=== PATIENT | male | born 1960 | race Two or more races ===

== ENCOUNTER 2023-11-02 13:19 | Inpatient (IN) | payer MEDICARE, OTHER ==
[~2023-11-02] VITALS: Ht 180.3 cm; Wt 79.4 kg
[2023-11-02] MEDS ORDERED: HYDR-3980 PO (14:34)
[2023-11-02] MEDS ORDERED: GABA300C PO (14:34)
[2023-11-02] MEDS ORDERED: TAMS-12 PO (14:34)
[2023-11-02] MEDS ORDERED: CARI350T27 PO (14:34)
[2023-11-02] MEDS ORDERED: MEMA5TAB42 PO (14:34)
[2023-11-02] MEDS ORDERED: ATOR10TA PO (14:45)
[2023-11-02] MEDS ORDERED: CANA1TAB4 PO (14:45)
[2023-11-02 14:59] LABS: BASOPHILS % (AUTO) 0.3 % (0.0-2.0); EOSINOPHILS # (AUTO) 0.1 K/uL (0.0-0.7); EOSINOPHILS % (AUTO) 1.9 % (0.0-6.0); HEMATOCRIT 43 % (39-51); LYMPHOCYTES # (AUTO) 1.7 K/uL (0.8-4.8); LYMPHOCYTES % (AUTO) 29.6 % (20.0-44.0); MEAN CORPUSCULAR HEMOGLOBIN 31 PG (26.0-33.0); MEAN CORPUSCULAR HGB CONC 33 g/dl (31.0-36.0); MEAN CORPUSCULAR VOLUME 94 fL (80-96); MONOCYTES # (AUTO) 0.4 K/uL (0.1-1.30); MONOCYTES % (AUTO) 7.2 % (2.0-12.0); NEUTROPHILS # (AUTO) 3.6 K/uL (1.8-8.9); PLATELET COUNT (AUTO) 256 K/uL (150-450); RED BLOOD CELL COUNT(AUTO) 4.53 MIL/uL (4.5-6.0); RED CELL DISTRIBUTION WIDTH 13.3 % (11.5-15.0); WHITE BLOOD COUNT (AUTO) 5.8 K/uL (4.3-11.0)
[2023-11-02 15:17] LABS: INR 0.92 (0.91-1.10); PARTIAL THROMBOPLASTIN TIME 28.2 SEC (24.3-34.3); PROTHROMBIN TIME 9.8 SECS (9.2-11.1)
[2023-11-02] MEDS ORDERED: ACETAMINOPHEN 325 MG TABLET PO PRN (15:30)
[2023-11-02] MEDS ORDERED: DEXTROSE 50%-WATER 50 ML DISP.SYRIN IV PRN (15:30)
[2023-11-02] MEDS ORDERED: MAGNESIUM HYDROXIDE 30 ML UDC PO PRN (15:30)
[2023-11-02] MEDS ORDERED: Z GUARD REMEDY 4 OZ OINT TP PRN (15:30)
[2023-11-02 15:40] LABS: ALBUMIN 3.8 g/dL (3.4-5.0); BILIRUBIN,TOTAL 0.2 mg/dL (0.2-1.0); CALCIUM, SERUM 9.1 mg/dL (8.5-10.1); CREATININE 1.1 mg/dL (0.6-1.3); POTASSIUM 4.6 mmol/L (3.5-5.1); TOTAL PROTEIN, SERUM 7.6 g/dL (6.4-8.2)
[2023-11-02] MEDS: BLOOD SUGAR DIAGNOSTIC 1 EACH STRIP IN SCH ×2 (17:06→23:13)
[2023-11-02] MEDS: HYDROMORPHONE 1 MG/1 ML DISP.SYRIN IV PRN ×2 (17:32→21:42)
[2023-11-02 18:55] VITALS: BP 98/54; TEMP 99
[2023-11-02] MEDS: INSULIN REGULAR, HUMAN 100 UNIT/ML 3 ML VIAL SQ PRN ×2 (19:17→23:22)
[2023-11-02 20:00] VITALS: BP 95/72; TEMP 98.4; O2SAT 97
[2023-11-03] VITALS (15 sets, daily range): BP systolic 114–131; BP diastolic 62–78; TEMP 98.1–98.2; O2SAT 94–100
[2023-11-03] MEDS: HYDROMORPHONE 1 MG/1 ML DISP.SYRIN IV PRN (04:20)
[2023-11-03 07:10] LABS: BASOPHILS % (AUTO) 0.4 % (0.0-2.0); EOSINOPHILS # (AUTO) 0.2 K/uL (0.0-0.7); EOSINOPHILS % (AUTO) 3.4 % (0.0-6.0); HEMATOCRIT 40 % (39-51); HEMOGLOBIN 13.2 g/dL (13.5-17.5); LYMPHOCYTES # (AUTO) 1.7 K/uL (0.8-4.8); LYMPHOCYTES % (AUTO) 37.1 % (20.0-44.0); MEAN CORPUSCULAR HEMOGLOBIN 32 PG (26.0-33.0); MEAN CORPUSCULAR HGB CONC 33 g/dl (31.0-36.0); MEAN CORPUSCULAR VOLUME 95 fL (80-96); MONOCYTES # (AUTO) 0.4 K/uL (0.1-1.30); MONOCYTES % (AUTO) 9.3 % (2.0-12.0); NEUTROPHILS # (AUTO) 2.3 K/uL (1.8-8.9); NEUTROPHILS % (AUTO) 49.8 % (43.0-81.0); PLATELET COUNT (AUTO) 221 K/uL (150-450); RED BLOOD CELL COUNT(AUTO) 4.17 MIL/uL (4.5-6.0); WHITE BLOOD COUNT (AUTO) 4.5 K/uL (4.3-11.0)
[2023-11-03] MEDS: PANTOPRAZOLE 40 MG TABLET.DR PO SCH (07:30)
[2023-11-03] MEDS: BLOOD SUGAR DIAGNOSTIC 1 EACH STRIP IN SCH ×4 (07:30→22:18)
[2023-11-03] MEDS ORDERED: POLYMYXIN B SULFATE 500,000 UNITS ONE ×2 (07:57→14:51)
[2023-11-03] MEDS ORDERED: BUPIVACAINE 0.5 % PF 150 MG/30 ML VIAL ONE (07:58)
[2023-11-03] MEDS ORDERED: CEFAZOLIN 1 GM ONE ×2 (07:58→14:51)
[2023-11-03] MEDS ORDERED: ANESTHESIA TRAY IN PYXIS 1 EA TRAY MC ONE (07:58)
[2023-11-03] MEDS ORDERED: LIDOCAINE 1%-EPI 1:100,000 20 ML VIAL ONE (07:59)
[2023-11-03] MEDS: ONDANSETRON HCL/PF 4 MG/2 ML VIAL IVP PRN (08:06)
[2023-11-03 08:10] LABS: CALCIUM, SERUM 8.5 mg/dL (8.5-10.1); CREATININE 0.9 mg/dL (0.6-1.3); MAGNESIUM 1.9 mg/dL (1.8-2.4); PHOSPHORUS 3.3 mg/dL (2.5-4.9); POTASSIUM 4.2 mmol/L (3.5-5.1)
[2023-11-03 08:17] LABS: APPEARANCE,URINE SLIGHTLY CLOUDY (CLEAR); BILIRUBIN,URINE NEGATIVE (NEGATIVE); BLOOD, URINE NEGATIVE Ery/uL (NEGATIVE); COLOR,URINE YELLOW (YELLOW); KETONES,URINE NEGATIVE (NEGATIVE); LEUKOCYTE ESTERASE ,URINE NEGATIVE (NEGATIVE); NITRITE, URINE NEGATIVE (NEGATIVE); PH,URINE 6.5 (5.0-8.0); PROTEIN,URINE TRACE mg/dl (NEGATIVE); UGLUCOSE 2+ mg/dL (NEGATIVE)
[2023-11-03] MEDS: ATORVASTATIN 10 MG TABLET PO SCH (09:00)
[2023-11-03] MEDS: TAMSULOSIN 0.4 MG CAP.SR.24H PO SCH (09:00)
[2023-11-03] MEDS: NICOTINE PATCH (21MG) 21 MG PATCH.TD24 TD SCH (09:00)
[2023-11-03] MEDS: MEMANTINE HCL 5 MG TABLET PO SCH (09:00)
[2023-11-03 09:04] LABS: ADD URINE CULTURE YES; BACTERIA,URINE Rare /HPF (None Seen); RBC,URINE 0-2 /HPF (0-2); SQUAMOUS EPITHELIAL CELL,UR Rare /HPF (None Seen)
[2023-11-03 09:10] LABS: THYROID STIMULATING HORMONE 6.495 uIU/mL (0.358-3.74)
[2023-11-03] MEDS ORDERED: LIDOCAINE 5% (PATCH) 1 EA PATCH TP SCH (09:30)
[2023-11-03] MEDS ORDERED: FENTANYL PF 250MCG/5ML AMPUL ONE ×2 (10:05→14:07)
[2023-11-03] MEDS ORDERED: HYDROMORPHONE INJ 2 MG/ML DISP.SYRIN ONE ×2 (10:05→13:26)
[2023-11-03] MEDS ORDERED: MIDAZOLAM HCL 2 MG/2ML VIAL ONE (10:06)
[2023-11-03] MEDS ORDERED: dexaMETHasone SOD PHOSPHATE 1 ML ONE (10:07)
[2023-11-03] MEDS ORDERED: FENTANYL PF 100MCG/2ML AMPUL ONE (10:07)
[2023-11-03] MEDS ORDERED: SUCCINYLCHOLINE CHLORIDE 20 MG/ML VIAL ONE (10:08)
[2023-11-03] MEDS ORDERED: ROCURONIUM BROMIDE 50 MG/5 ML ONE (10:09)
[2023-11-03] MEDS ORDERED: FAMOTIDINE/PF INJ 20 MG/2 ML VIAL IV ONE (10:09)
[2023-11-03] MEDS ORDERED: THROMBIN (BOVINE) 5,000 UNITS VIAL TP ONE (12:29)
[2023-11-03] MEDS ORDERED: GELATIN SPONGE,ABSORBABLE 1 SPONGE SPONGE TP ONE (12:29)
[2023-11-03] MEDS ORDERED: GELATIN SPONGE,ABSORBABLE 1 EA SPONGE TP ONE (12:30)
[2023-11-03] MEDS ORDERED: CELLULOSE,OXIDIZED 1 EA PACK MC ONE (12:31)
[2023-11-03] MEDS ORDERED: CELLULOSE,OXIDIZED 1 EACH EACH MC ONE (12:32)
[2023-11-03 12:33] LABS: ABG BASE EXCESS -2.9 mmol/L; ABG OXYGEN SATURATION 99.4 % (92.0-98.5); ABG PCO2 36.5 mmHg (35.0-45.0); ABG PH 7.388 (7.350-7.450); ABG PO2 597.2 mmHg (75.0-100.0); ABG TOTAL HEMOGLOBIN 14.2 G/dL (13.5-18.0); AaDO2 79.3 mmHg; COHb 0.5 % (0.5-1.5); MetHb 0.5 % (0.0-1.5); O2Hb 98.4 % (94.0-97.0); SITE, ABG A-Line
[2023-11-03] MEDS ORDERED: HEMOSTATIC MATRIX 8 ML 1 EACH PAD MC ONE (12:41)
[2023-11-03] MEDS ORDERED: VANCOMYCIN 1 GM VIAL ONE (14:51)
[2023-11-03] MEDS ORDERED: BACITRACIN ZINC OINT (15 GM) 15 GM TUBE TP ONE (14:51)
[2023-11-03 18:52] LABS: BASOPHILS % (AUTO) 0.2 % (0.0-2.0); HEMATOCRIT 41 % (39-51); HEMOGLOBIN 13.6 g/dL (13.5-17.5); LYMPHOCYTES # (AUTO) 0.4 K/uL (0.8-4.8); LYMPHOCYTES % (AUTO) 5.3 % (20.0-44.0); MEAN CORPUSCULAR HEMOGLOBIN 32 PG (26.0-33.0); MEAN CORPUSCULAR HGB CONC 34 g/dl (31.0-36.0); MEAN CORPUSCULAR VOLUME 94 fL (80-96); MONOCYTES # (AUTO) 0.1 K/uL (0.1-1.30); MONOCYTES % (AUTO) 1.4 % (2.0-12.0); NEUTROPHILS # (AUTO) 7.8 K/uL (1.8-8.9); NEUTROPHILS % (AUTO) 93.1 % (43.0-81.0); PLATELET COUNT (AUTO) 248 K/uL (150-450); RED BLOOD CELL COUNT(AUTO) 4.32 MIL/uL (4.5-6.0); WHITE BLOOD COUNT (AUTO) 8.4 K/uL (4.3-11.0)
[2023-11-03] MEDS ORDERED: MEPERIDINE HCL/PF 50 MG/ML DISP.SYRIN IV PRN (19:00)
[2023-11-03] MEDS ORDERED: CARISOPRODOL 350 MG TABLET PO SCH (19:00)
[2023-11-03] MEDS ORDERED: VANCOMYCIN 1 GM in IV D5W 250 ML IV SCH (19:00)
[2023-11-03] MEDS ORDERED: oxyCODONE/APAP (5/325 MG) 1 UDTAB TABLET PO PRN (19:00)
[2023-11-03 19:02] LABS: POTASSIUM 3.8 mmol/L (3.5-5.1)
[2023-11-03 19:38] LABS: INR 0.94 (0.91-1.10); PARTIAL THROMBOPLASTIN TIME 27.9 SEC (24.3-34.3)
[2023-11-03] MEDS: VANCOMYCIN 1 GM in IV D5W 250ml IV SCH (20:17)
[2023-11-03] MEDS: PIPERACILLIN /TAZOBACTAM 3.375 G in IV D5W 50 ML IV SCH (21:39)
[2023-11-03] MEDS: INSULIN REGULAR, HUMAN 100 UNIT/ML 3 ML VIAL SQ PRN (22:42)
[2023-11-03] MEDS: CARISOPRODOL 350 MG TABLET PO SCH (23:57)
[2023-11-04] VITALS (17 sets, daily range): BP systolic 91–135; BP diastolic 50–77; TEMP 97.8–98.8; O2SAT 89–100
[2023-11-04] MEDS: ONDANSETRON HCL/PF 4 MG/2 ML VIAL IV PRN ×3 (00:37→13:08)
[2023-11-04] MEDS: HYDROMORPHONE INJ 2 MG/ML DISP.SYRIN IV PRN ×3 (00:46→15:43)
[2023-11-04 03:35] LABS: BASOPHILS % (AUTO) 0.2 % (0.0-2.0); EOSINOPHILS % (AUTO) 0.1 % (0.0-6.0); HEMATOCRIT 38 % (39-51); HEMOGLOBIN 12.6 g/dL (13.5-17.5); LYMPHOCYTES # (AUTO) 0.4 K/uL (0.8-4.8); LYMPHOCYTES % (AUTO) 5.5 % (20.0-44.0); MEAN CORPUSCULAR HEMOGLOBIN 32 PG (26.0-33.0); MEAN CORPUSCULAR HGB CONC 34 g/dl (31.0-36.0); MEAN CORPUSCULAR VOLUME 94 fL (80-96); MONOCYTES # (AUTO) 0.2 K/uL (0.1-1.30); MONOCYTES % (AUTO) 2.9 % (2.0-12.0); NEUTROPHILS # (AUTO) 5.9 K/uL (1.8-8.9); NEUTROPHILS % (AUTO) 91.3 % (43.0-81.0); PLATELET COUNT (AUTO) 213 K/uL (150-450); RED BLOOD CELL COUNT(AUTO) 4.01 MIL/uL (4.5-6.0); WHITE BLOOD COUNT (AUTO) 6.4 K/uL (4.3-11.0)
[2023-11-04 03:36] LABS: CALCIUM, SERUM 7.6 mg/dL (8.5-10.1); CREATININE 0.7 mg/dL (0.6-1.3); POTASSIUM 3.5 mmol/L (3.5-5.1)
[2023-11-04 03:37] LABS: MAGNESIUM 1.6 mg/dL (1.8-2.4); PHOSPHORUS 2.5 mg/dL (2.5-4.9)
[2023-11-04] MEDS: PIPERACILLIN /TAZOBACTAM 3.375 G in IV D5W 50 ML IV SCH ×3 (05:06→20:11)
[2023-11-04] MEDS: CARISOPRODOL 350 MG TABLET PO SCH ×5 (06:00→23:00)
[2023-11-04] MEDS: PANTOPRAZOLE 40 MG TABLET.DR PO SCH (08:41)
[2023-11-04] MEDS: VANCOMYCIN 1 GM in IV D5W 250ml IV SCH ×2 (08:42→19:31)
[2023-11-04] MEDS: BLOOD SUGAR DIAGNOSTIC 1 EACH STRIP IN SCH ×4 (08:45→22:00)
[2023-11-04] MEDS: INSULIN REGULAR, HUMAN 100 UNIT/ML 3 ML VIAL SQ PRN ×3 (08:46→17:41)
[2023-11-04] MEDS: NICOTINE PATCH (21MG) 21 MG PATCH.TD24 TD SCH ×2 (09:00→09:47)
[2023-11-04] MEDS: LIDOCAINE 5% (PATCH) 1 EA PATCH TP SCH (09:47)
[2023-11-04] MEDS: TAMSULOSIN 0.4 MG CAP.SR.24H PO SCH (09:48)
[2023-11-04] MEDS: ATORVASTATIN 10 MG TABLET PO SCH (09:48)
[2023-11-04] MEDS: MEMANTINE HCL 5 MG TABLET PO SCH (09:48)
[2023-11-04] MEDS: IV NS 0.9% 1,000 ML IV PRN ×2 (09:49→15:43)
[2023-11-04] MEDS ORDERED: MAGNESIUM OXIDE 400 MG TABLET PO ONE (10:00)
[2023-11-04] MEDS ORDERED: MEPERIDINE HCL/PF 50 MG/ML DISP.SYRIN IV PRN (14:00)
[2023-11-04] MEDS: METOCLOPRAMIDE HCL 10 MG/2 ML VIAL IV PRN ×2 (15:58→23:49)
[2023-11-04] MEDS: HYDROMORPHONE 1 MG/1 ML DISP.SYRIN IV PRN (23:49)
[2023-11-05] MEDS: IV NS 0.9% 1,000 ML IV PRN (03:24)
[2023-11-05] MEDS: PIPERACILLIN /TAZOBACTAM 3.375 G in IV D5W 50 ML IV SCH ×3 (04:00→21:52)
[2023-11-05] MEDS: HYDROMORPHONE 1 MG/1 ML DISP.SYRIN IV PRN ×5 (04:20→21:44)
[2023-11-05] MEDS: CARISOPRODOL 350 MG TABLET PO SCH ×5 (05:06→23:52)
[2023-11-05 05:09] VITALS: BP 146/95; TEMP 99; O2SAT 98
[2023-11-05] MEDS: BLOOD SUGAR DIAGNOSTIC 1 EACH STRIP IN SCH ×4 (06:08→22:39)
[2023-11-05] MEDS: INSULIN REGULAR, HUMAN 100 UNIT/ML 3 ML VIAL SQ PRN ×4 (06:15→22:41)
[2023-11-05 07:00] VITALS: BP 108/61; TEMP 99.9; O2SAT 96
[2023-11-05 07:18] LABS: BASOPHILS % (AUTO) 0.3 % (0.0-2.0); EOSINOPHILS # (AUTO) 0.1 K/uL (0.0-0.7); EOSINOPHILS % (AUTO) 1.1 % (0.0-6.0); HEMATOCRIT 34 % (39-51); HEMOGLOBIN 11.4 g/dL (13.5-17.5); LYMPHOCYTES # (AUTO) 0.7 K/uL (0.8-4.8); LYMPHOCYTES % (AUTO) 13.2 % (20.0-44.0); MEAN CORPUSCULAR HEMOGLOBIN 32 PG (26.0-33.0); MEAN CORPUSCULAR HGB CONC 34 g/dl (31.0-36.0); MEAN CORPUSCULAR VOLUME 93 fL (80-96); MONOCYTES # (AUTO) 0.4 K/uL (0.1-1.30); MONOCYTES % (AUTO) 7.2 % (2.0-12.0); NEUTROPHILS # (AUTO) 4.1 K/uL (1.8-8.9); NEUTROPHILS % (AUTO) 78.2 % (43.0-81.0); PLATELET COUNT (AUTO) 191 K/uL (150-450); RED CELL DISTRIBUTION WIDTH 13.2 % (11.5-15.0); WHITE BLOOD COUNT (AUTO) 5.3 K/uL (4.3-11.0)
[2023-11-05] MEDS: PANTOPRAZOLE 40 MG TABLET.DR PO SCH (07:37)
[2023-11-05 07:45] LABS: CALCIUM, SERUM 6.4 mg/dL (8.5-10.1); CREATININE 0.7 mg/dL (0.6-1.3); MAGNESIUM 1.9 mg/dL (1.8-2.4); POTASSIUM 3.1 mmol/L (3.5-5.1)
[2023-11-05] MEDS: TAMSULOSIN 0.4 MG CAP.SR.24H PO SCH (08:47)
[2023-11-05] MEDS: MEMANTINE HCL 5 MG TABLET PO SCH (08:47)
[2023-11-05] MEDS: LIDOCAINE 5% (PATCH) 1 EA PATCH TP SCH (08:47)
[2023-11-05] MEDS: ATORVASTATIN 10 MG TABLET PO SCH (08:47)
[2023-11-05] MEDS: VANCOMYCIN 1 GM in IV D5W 250ml IV SCH ×2 (08:57→20:31)
[2023-11-05] MEDS: ONDANSETRON HCL/PF 4 MG/2 ML VIAL IV PRN (08:58)
[2023-11-05] MEDS: POTASSIUM CHLORIDE 20 MEQ TAB.PRT.SR PO SCH ×2 (11:00→11:09)
[2023-11-05] MEDS: METOCLOPRAMIDE HCL 10 MG/2 ML VIAL IV PRN (11:55)
[2023-11-05 13:00] VITALS: BP 127/69; TEMP 98; O2SAT 96
[2023-11-05 16:00] VITALS: BP 127/69; TEMP 98.9; O2SAT 96
[2023-11-05] MEDS: K PHOS NEUTRAL 250 MG TABLET PO ONE ×2 (16:00→16:53)
[2023-11-05] MEDS: ONDANSETRON HCL/PF 4 MG/2 ML VIAL IVP PRN (16:52)
[2023-11-05 21:00] VITALS: BP 128/72; TEMP 100.2; O2SAT 96
[2023-11-06] MEDS: PIPERACILLIN /TAZOBACTAM 3.375 G in IV D5W 50 ML IV SCH (04:58)
[2023-11-06 05:00] VITALS: BP 121/75; TEMP 99.1; O2SAT 96
[2023-11-06] MEDS: IV NS 0.9% 1,000 ML IV PRN (05:09)
[2023-11-06] MEDS: CARISOPRODOL 350 MG TABLET PO SCH ×3 (05:25→17:20)
[2023-11-06] MEDS: HYDROMORPHONE 1 MG/1 ML DISP.SYRIN IV PRN ×5 (05:27→22:26)
[2023-11-06] MEDS: BLOOD SUGAR DIAGNOSTIC 1 EACH STRIP IN SCH ×4 (06:10→22:40)
[2023-11-06] MEDS: INSULIN REGULAR, HUMAN 100 UNIT/ML 3 ML VIAL SQ PRN ×4 (06:12→22:43)
[2023-11-06 07:11] LABS: BASOPHILS % (AUTO) 0.3 % (0.0-2.0); EOSINOPHILS # (AUTO) 0.1 K/uL (0.0-0.7); EOSINOPHILS % (AUTO) 1.3 % (0.0-6.0); HEMATOCRIT 35 % (39-51); HEMOGLOBIN 12.1 g/dL (13.5-17.5); LYMPHOCYTES # (AUTO) 0.6 K/uL (0.8-4.8); LYMPHOCYTES % (AUTO) 12.9 % (20.0-44.0); MEAN CORPUSCULAR HEMOGLOBIN 32 PG (26.0-33.0); MEAN CORPUSCULAR HGB CONC 34 g/dl (31.0-36.0); MEAN CORPUSCULAR VOLUME 93 fL (80-96); MONOCYTES # (AUTO) 0.4 K/uL (0.1-1.30); MONOCYTES % (AUTO) 9.2 % (2.0-12.0); NEUTROPHILS # (AUTO) 3.4 K/uL (1.8-8.9); NEUTROPHILS % (AUTO) 76.3 % (43.0-81.0); PLATELET COUNT (AUTO) 188 K/uL (150-450); RED BLOOD CELL COUNT(AUTO) 3.79 MIL/uL (4.5-6.0); RED CELL DISTRIBUTION WIDTH 12.8 % (11.5-15.0); WHITE BLOOD COUNT (AUTO) 4.4 K/uL (4.3-11.0)
[2023-11-06 07:20] LABS: CALCIUM, SERUM 8.1 mg/dL (8.5-10.1); CREATININE 0.7 mg/dL (0.6-1.3); MAGNESIUM 1.7 mg/dL (1.8-2.4); PHOSPHORUS 1.3 mg/dL (2.5-4.9); POTASSIUM 3.2 mmol/L (3.5-5.1)
[2023-11-06 09:00] VITALS: BP 125/71; TEMP 99.3; O2SAT 96
[2023-11-06] MEDS ORDERED: POTASSIUM CHLORIDE 20 MEQ TAB.PRT.SR PO ONE (09:00)
[2023-11-06] MEDS ORDERED: MAGNESIUM OXIDE 400 MG TABLET PO ONE (09:00)
[2023-11-06] MEDS: NICOTINE PATCH (21MG) 21 MG PATCH.TD24 TD SCH (09:00)
[2023-11-06] MEDS: LIDOCAINE 5% (PATCH) 1 EA PATCH TP SCH ×2 (09:29→10:35)
[2023-11-06] MEDS: ATORVASTATIN 10 MG TABLET PO SCH (10:35)
[2023-11-06] MEDS: TAMSULOSIN 0.4 MG CAP.SR.24H PO SCH (10:35)
[2023-11-06] MEDS: MEMANTINE HCL 5 MG TABLET PO SCH (10:36)
[2023-11-06] MEDS: PANTOPRAZOLE 40 MG TABLET.DR PO SCH (10:36)
[2023-11-06] MEDS: VANCOMYCIN 1 GM in IV D5W 250ml IV SCH (11:28)
[2023-11-06] MEDS ORDERED: K PHOS NEUTRAL 250 MG TABLET PO ONE (16:00)
[2023-11-06 16:05] VITALS: BP 121/71; TEMP 99.1; O2SAT 97
[2023-11-06 20:00] VITALS: BP 125/77; TEMP 99.5; O2SAT 98
[2023-11-07] MEDS: CARISOPRODOL 350 MG TABLET PO SCH ×5 (00:26→23:39)
[2023-11-07] MEDS: HYDROMORPHONE 1 MG/1 ML DISP.SYRIN IV PRN ×4 (06:43→21:00)
[2023-11-07] MEDS: PANTOPRAZOLE 40 MG TABLET.DR PO SCH (06:46)
[2023-11-07] MEDS: BLOOD SUGAR DIAGNOSTIC 1 EACH STRIP IN SCH ×4 (06:59→21:42)
[2023-11-07 07:00] VITALS: BP 117/70; TEMP 99.3; O2SAT 95
[2023-11-07] MEDS: NICOTINE PATCH (21MG) 21 MG PATCH.TD24 TD SCH (09:00)
[2023-11-07] MEDS: TAMSULOSIN 0.4 MG CAP.SR.24H PO SCH (09:00)
[2023-11-07] MEDS: MEMANTINE HCL 5 MG TABLET PO SCH (09:00)
[2023-11-07] MEDS: ATORVASTATIN 10 MG TABLET PO SCH (09:00)
[2023-11-07] MEDS: LIDOCAINE 5% (PATCH) 1 EA PATCH TP SCH (09:10)
[2023-11-07] MEDS: INSULIN REGULAR, HUMAN 100 UNIT/ML 3 ML VIAL SQ PRN ×2 (11:54→21:52)
[2023-11-07 16:00] VITALS: BP 122/77; TEMP 99; O2SAT 96
[2023-11-07 20:00] VITALS: BP_SYST 111; BP_DIAS 78; BP_DIAS 97; TEMP 98.2; O2SAT 97
[2023-11-08] MEDS: HYDROMORPHONE 1 MG/1 ML DISP.SYRIN IV PRN ×7 (00:01→23:02)
[2023-11-08] MEDS: CARISOPRODOL 350 MG TABLET PO SCH ×3 (05:40→17:02)
[2023-11-08] MEDS: BLOOD SUGAR DIAGNOSTIC 1 EACH STRIP IN SCH ×4 (06:27→22:38)
[2023-11-08] MEDS: INSULIN REGULAR, HUMAN 100 UNIT/ML 3 ML VIAL SQ PRN ×4 (06:33→22:53)
[2023-11-08 06:43] LABS: BASOPHILS % (AUTO) 0.5 % (0.0-2.0); EOSINOPHILS # (AUTO) 0.2 K/uL (0.0-0.7); EOSINOPHILS % (AUTO) 3.1 % (0.0-6.0); HEMATOCRIT 38 % (39-51); HEMOGLOBIN 13.1 g/dL (13.5-17.5); LYMPHOCYTES # (AUTO) 1.7 K/uL (0.8-4.8); LYMPHOCYTES % (AUTO) 34.8 % (20.0-44.0); MEAN CORPUSCULAR HEMOGLOBIN 32 PG (26.0-33.0); MEAN CORPUSCULAR HGB CONC 34 g/dl (31.0-36.0); MEAN CORPUSCULAR VOLUME 92 fL (80-96); MONOCYTES # (AUTO) 0.6 K/uL (0.1-1.30); MONOCYTES % (AUTO) 12.7 % (2.0-12.0); NEUTROPHILS # (AUTO) 2.4 K/uL (1.8-8.9); NEUTROPHILS % (AUTO) 48.9 % (43.0-81.0); PLATELET COUNT (AUTO) 251 K/uL (150-450); RED BLOOD CELL COUNT(AUTO) 4.12 MIL/uL (4.5-6.0); RED CELL DISTRIBUTION WIDTH 12.8 % (11.5-15.0); WHITE BLOOD COUNT (AUTO) 4.9 K/uL (4.3-11.0)
[2023-11-08 07:18] LABS: CALCIUM, SERUM 8.8 mg/dL (8.5-10.1); CREATININE 0.9 mg/dL (0.6-1.3); MAGNESIUM 1.9 mg/dL (1.8-2.4); PHOSPHORUS 2.1 mg/dL (2.5-4.9); POTASSIUM 3.6 mmol/L (3.5-5.1)
[2023-11-08] MEDS: PANTOPRAZOLE 40 MG TABLET.DR PO SCH (07:49)
[2023-11-08] MEDS: GLUCERNA SHAKE 237 ML CAN PO SCH (08:02)
[2023-11-08] MEDS: TAMSULOSIN 0.4 MG CAP.SR.24H PO SCH (08:02)
[2023-11-08] MEDS: NICOTINE PATCH (21MG) 21 MG PATCH.TD24 TD SCH (08:02)
[2023-11-08] MEDS: MEMANTINE HCL 5 MG TABLET PO SCH (08:02)
[2023-11-08] MEDS: ATORVASTATIN 10 MG TABLET PO SCH (08:02)
[2023-11-08 08:56] VITALS: BP 115/71; TEMP 97.6; O2SAT 97
[2023-11-08] MEDS ORDERED: K PHOS NEUTRAL 250 MG TABLET PO ONE (16:00)
[2023-11-08 16:29] VITALS: BP 116/78; TEMP 98.4; O2SAT 97
[2023-11-08 20:00] VITALS: BP 111/68; TEMP 99.3; O2SAT 96
[2023-11-09] MEDS: CARISOPRODOL 350 MG TABLET PO SCH ×4 (00:29→17:42)
[2023-11-09] MEDS: BLOOD SUGAR DIAGNOSTIC 1 EACH STRIP IN SCH ×3 (06:08→17:53)
[2023-11-09] MEDS: INSULIN REGULAR, HUMAN 100 UNIT/ML 3 ML VIAL SQ PRN ×3 (06:21→17:56)
[2023-11-09] MEDS: HYDROMORPHONE 1 MG/1 ML DISP.SYRIN IV PRN ×4 (06:40→17:42)
[2023-11-09 07:34] LABS: CALCIUM, SERUM 8.7 mg/dL (8.5-10.1); CREATININE 0.8 mg/dL (0.6-1.3); POTASSIUM 3.9 mmol/L (3.5-5.1)
[2023-11-09 08:21] VITALS: BP 112/77; TEMP 99; O2SAT 96
[2023-11-09] MEDS: MEMANTINE HCL 5 MG TABLET PO SCH (08:54)
[2023-11-09] MEDS: ATORVASTATIN 10 MG TABLET PO SCH (08:54)
[2023-11-09] MEDS: TAMSULOSIN 0.4 MG CAP.SR.24H PO SCH (08:54)
[2023-11-09] MEDS: PANTOPRAZOLE 40 MG TABLET.DR PO SCH (08:54)
[2023-11-09] MEDS: LIDOCAINE 5% (PATCH) 1 EA PATCH TP SCH (08:55)
[2023-11-09] MEDS: NICOTINE PATCH (21MG) 21 MG PATCH.TD24 TD SCH (09:00)
[2023-11-09] MEDS: GLUCERNA SHAKE 237 ML CAN PO SCH (09:43)
== END 2023-11-09 19:30 | disposition home or self-care (01) | DRG 460 ==
LOC: MED 13:19 → EDSTATUS 11-03 10:55 → ICU 11-03 18:34 → MED 11-04 15:21
PROVIDERS: ADMIT Nurse Practitioner Family; ATTEND Neurological Surgery
PROC: 0RG2071 Fusion of 2 or more Cervical Vertebral Joints with Autologous Tissue Substitute, Posterior Approach, Posterior Column, Open Approach (ICD-10-PCS; principal; 2023-11-03)
PROC: 00NW0ZZ Release Cervical Spinal Cord, Open Approach (ICD-10-PCS; 2023-11-03)
PROC: 0RG7071 Fusion of 2 to 7 Thoracic Vertebral Joints with Autologous Tissue Substitute, Posterior Approach, Posterior Column, Open Approach (ICD-10-PCS; 2023-11-03)
PROC: 0RG4071 Fusion of Cervicothoracic Vertebral Joint with Autologous Tissue Substitute, Posterior Approach, Posterior Column, Open Approach (ICD-10-PCS; 2023-11-03)
DX: M40.203 Unspecified kyphosis, cervicothoracic region (principal); M50.30 Other cervical disc degeneration, unspecified cervical region; E11.40 Type 2 diabetes mellitus with diabetic neuropathy, unspecified; N40.0 Benign prostatic hyperplasia without lower urinary tract symptoms; E78.5 Hyperlipidemia, unspecified; I10 Essential (primary) hypertension; Z71.6 Tobacco abuse counseling; F17.210 Nicotine dependence, cigarettes, uncomplicated; M48.02 Spinal stenosis, cervical region; Z79.891 Long term (current) use of opiate analgesic; G89.29 Other chronic pain
CPT/HCPCS: 36415; 36600; 71045-TC; 72050-TC; 80048-TC; 80051-TC; 80053-TC; 80061-TC; 80202-TC; 81001; 82962-TC; 83735-TC; 84100-TC; 84439-TC; 84443-TC; 85025-TC; 85610-TC; 85730-TC; 87081-TC; 87086-TC; 93307-TC; 97110-TC; 97112-TC; 97116-TC; 97530-TC; A4223; A6209; A6402; A6403; C1713; C1751; G0378; J0330; J0690; J1100; J1170; J1815; J2175; J2250; J2405; J2543; J2704; J2765; J3010; J3370; J3490; J7030; J7060; L0172